=== PATIENT | male | born 1995 ===

== ENCOUNTER 2018-02-17 13:41 | Emergency (ER) | payer BC, OTHER ==
[~2018-02-17] VITALS: Ht 175.3 cm; Wt 86.2 kg
--- NOTE | 2018-02-17 14:32 | ED GU-Male ---
General Chief Complaint: -Male Stated Complaint: GROIN PAIN Nursing Triage Note: PT TO ED 10 CO OF L TESTICULAR PAIN, SINCE YESTERDAY, STATES MAYBE HERNIA. Source: patient Exam Limitations: no limitations History of Present Illness Date Seen by Provider: Feb 17, 2018 Time Seen by Provider: 14:30 Initial Comments tto ER with left testicular pain since yesterday. Concerned it may be a hernia. He had an episode of "infection" affecting the left testicle when he was about 17 years old which he took antibiotics for. The pain feels similar.states that he is sexually active but wears protection. Denies any penile sores or discharge. Timing/Duration: just prior to arrival Severity/Quality: moderate Location: scrotal Radiation: none Activities at Onset: none Prior Genitourinary Problems: none Associated Symptoms: No abdominal pain, No dysuria, No urinary frequency Allergies and Home Medications Allergies Coded Allergies: No Known Drug Allergies (Unverified , 02/17/18) Home Medications Sulfamethoxazole/Trimethoprim 1 Each Tablet, 1 EACH PO BID Prescribed by: PHILIP HESS on 02/17/18 2602 Patient Home Medication List Home Medication List Reviewed: Yes Review of Systems Constitutional: see HPI; No chills EENTM: see HPI Respiratory: no symptoms reported Cardiovascular: no symptoms reported Genitourinary: see HPI; denies burning, denies discharge, denies dysuria; pain Musculoskeletal: no symptoms reported Skin: no symptoms reported Psychiatric/Neurological: No Symptoms Reported Endocrine: No Symptoms Reported Past [id number] Hx Patient Social History Recent Foreign Travel: No Contact w/Someone Who Travel: No Recent Infectious Disease Expo: No Physical Exam Vital Signs Vital Signs - First Documented 02/17/18 14:15 Temp 98.1 Pulse 71 Resp 18 B/P (MAP) 129/86 (100) Pulse Ox 99 Capillary Refill : Less Than 3 Seconds General Appearance: WD/WN, no apparent distress HEENT: PERRL/EOMI, normal ENT inspection Neck: non-tender, full range of motion Cardiovascular: regular rate, rhythm, no murmur Respiratory: no respiratory distress, no accessory muscle use Gastrointestinal: normal bowel sounds, non tender Male: normal genitalia, testicular tenderness (left) Extremities: normal range of motion, non-tender Neurologic/Psychiatric: alert, normal mood/affect, oriented x 3 Skin: normal color, warm/dry Progress/Results/Core Measures Suspected Sepsis Recent Fever Within 48 Hours: No Infection Criteria Present: None New/Unexplained Altered Menta: No Sepsis Screen: No Definite Risk SIRS Temperature:98.1 Pulse: 71 Respiratory Rate: 18 Blood Pressure 129 /86 Mean: 100 Results/Orders Lab Results Laboratory Tests Test 02/17/18 14:37 Range/Units Urine Color YELLOW Urine Clarity CLEAR Urine pH 6.5 5-9 Urine Specific [place] 1.010 L 1.016-1.022 Urine Protein NEGATIVE NEGATIVE Urine Glucose (UA) NEGATIVE NEGATIVE Urine Ketones NEGATIVE NEGATIVE Urine Nitrite NEGATIVE NEGATIVE Urine Bilirubin NEGATIVE NEGATIVE Urine Urobilinogen NORMAL NORMAL MG/DL Urine Leukocyte Esterase NEGATIVE NEGATIVE Urine RBC (Auto) NEGATIVE NEGATIVE Urine RBC NONE /HPF Urine WBC NONE /HPF Urine Squamous Epithelial Cells NONE /HPF Urine Crystals NONE /LPF Urine Bacteria NEGATIVE /HPF Urine Casts NONE /LPF Urine Mucus NEGATIVE /LPF Urine Culture Indicated NO My Orders Orders - PHILIP HESS APRN Us Scrotum (Testicle) [id number] (02/17/18 14:28) Ua Culture If Indicated (02/17/18 14:28) Neis Andrew Dna Urine Test (02/17/18 14:28) Chlamydia Trachomatis Urine (02/17/18 14:28) Vital Signs/I&O 02/17/18 14:15 Temp 98.1 Pulse 71 Resp 18 B/P (MAP) 129/86 (100) Pulse Ox 99 Capillary Refill : Less Than 3 Seconds Blood Pressure Mean: 100 Departure Impression Primary Impression: Epididymitis Disposition: 01 HOME, SELF-CARE Condition: Stable Departure-Patient Inst. Decision time for Depature: 15:36 Referrals: NO,LOCAL PHYSICIAN (PCP/Family) Primary Care Physician Patient Instructions: Epididymitis (DC) Add. Discharge Instructions: 1. Off work the next 2 days 2. Antibiotics as directed 3. Use supportive underwear to elevate the testicles for the next 3 or 4 days. Ice pack as needed for additional pain control. All discharge instructions reviewed with patient and/or family. Voiced understanding. Scripts Sulfamethoxazole/Trimethoprim (Bactrim Ds Tablet) 1 Each Tablet 1 EACH PO BID, #14 TAB Prov: PHILIP HESS APRN 02/17/18 PHILIP HESS APRN Feb 17, 2018 14:31
[2018-02-17 14:52] LABS: BILIRUBIN,URINE NEGATIVE (NEGATIVE); CLARITY,URINE CLEAR; COLOR,URINE YELLOW; GLUCOSE, URINE (UA) NEGATIVE (NEGATIVE); KETONES,URINE NEGATIVE (NEGATIVE); LEUKOCYTE ESTERASE ,URINE NEGATIVE (NEGATIVE); NITRITE,URINE NEGATIVE (NEGATIVE); PH,URINE 6.5 (5-9); PROTEIN,URINE NEGATIVE (NEGATIVE); UROBILINOGEN,URINE NORMAL (NORMAL)
[2018-02-17 14:58] LABS: BACTERIA,URINE NEGATIVE /HPF
[2018-02-17] MEDS ORDERED: SULF1TAB35 PO (15:38)
--- NOTE | 2018-02-17 15:40 | Diagnostic Imaging Report ---
INDICATION: Left testicular pain EXAM: Duplex ultrasound of the scrotum was done with grayscale, spectral waveform and color Doppler flow analysis. FINDINGS: The right testicle measures 5.0 x 2.3 x 2.8 cm. The left testicle measures 4.8 x 2.3 x 2.8 cm. The testes have homogeneous echogenicity. There is normal color fill and normal spectral waveform analysis in both kidneys. No hydrocele, varicocele or epididymitis. IMPRESSION: Negative duplex scrotal ultrasound. Dictated by: Dictated on workstation # [id number]
[2018-02-17 15:54] VITALS: BP 129/86
== END 2018-02-17 15:54 | disposition home or self-care (01) ==
LOC: ER 13:44
DX: N45.1 Epididymitis (principal)
CPT/HCPCS: 36415; 76870; 81000; 87491; 87591